=== PATIENT | female | born 1970 | race Two or more races ===

== ENCOUNTER 2019-10-18 12:46 | Emergency (ER) | payer SELFPAY ==
--- NOTE | 2019-10-18 14:17 | ER Document Report ---
ED Medical Screen (RME) - General Stated Complaint: BACK PAIN Time Seen by Provider: 10/18/19 14:10 Mode of Arrival: Ambulatory Information source: Patient Notes: 49-year-old female patient presenting to the emergency department chief complaint of low back pain that radiates down into her left leg and buttocks. Patient reports she was seen in urgent care last week, was placed on a prednisone taper pack, given a steroid injection and also placed on cyclobenzaprine. She reports her symptoms are worsening since being on the medications. She denies any direct trauma to the area. Denies any specific heavy lifting or incident that causes pain. Tenderness to palpation in the lumbar paraspinous areas bilaterally, increased on the left. I have greeted and performed a rapid initial assessment of this patient. A comprehensive ED assessment and evaluation of the patient, analysis of test results and completion of the medical decision making process will be conducted by additional ED providers. I have specifically instructed the patient or family members with the patient to immediately return to any nursing staff should anything change in the patient's condition or with their chief complaint. - Related Data Allergies/Adverse Reactions: No Known Allergies Allergy (Verified 10/18/19 14:06)
--- NOTE | 2019-10-18 15:10 | RADIOLOGY REPORT (SQ) ---
EXAM DESCRIPTION: CT LUMBAR SPINE WITHOUT COMPLETED DATE/TIME: 10/18/2019 2:57 pm REASON FOR STUDY: low back pain COMPARISON: None. TECHNIQUE: Axial images acquired through the lumbar spine without intravenous contrast. Images revi ewed with lung, soft tissue and bone windows. Reconstructed coronal and sagittal MPR images reviewed . All images stored on PACS. All CT scanners at this facility use dose modulation, iterative reconstruction, and/or weight based d osing when appropriate to reduce radiation dose to as low as reasonably achievable (ALARA). [facility]: Dose Right [facility]: CareDose [facility]: Dose Right [facility]: Teradose 4D [facility]: RipCode RADIATION DOSE: mGy. LIMITATIONS: None. FINDINGS: SEGMENTATION: Normal. No transitional anatomy. ALIGNMENT: Grade 1 anterolisthesis of L5 on S1. VERTEBRAL BODIES: No fractures. No dislocation. No acute findings. DISCS: There is disc space narrowing throughout the lumbar spine most marked at L4-L5 and L5-S1. Pro minent spurring posteriorly at 4 5 with slight indentation anterior thecal sac. There is bilateral f oraminal stenosis at this level. PEDICLES, TRANSVERSE PROCESSES: No fractures. No dislocation. No acute findings. FACETS, POSTERIOR ELEMENTS: Bilateral pars defects at L5-S1. HARDWARE: None in the spine. VISUALIZED RIBS: No fractures. SOFT TISSUES: No significant or acute finding in adjacent soft tissues. OTHER: No other significant finding. IMPRESSION: 1. Multilevel disc degenerative disease most marked at L4-L5 and L5-S1. 2. Grade 1 anterolisthesis of L5 on S1 with bilateral pars defects. TECHNICAL DOCUMENTATION: JOB ID: [id number] Quality ID # [id number]: Final reports with documentation of one or more dose reduction techniques (e.g., Au tomated exposure control, adjustment of the mA and/or kV according to patient size, use of iterative reconstruction technique) 2010 [employer]- All Rights Reserved Reading location - IP/workstation name: [email or web address]
--- NOTE | 2019-10-18 16:50 | ER Document Report ---
ED General - General Chief Complaint: Low Back Pain Stated Complaint: BACK PAIN Time Seen by Provider: 10/18/19 14:10 Mode of Arrival: Ambulatory Notes: Patient is a 49-year-old female with no significant past medical history presents to the emergency department the chief complaint of lower back pain is been ongoing for little while now. The patient reports throughout her life she is had back pain problems on and off. She is never been given a formal diagnosis. 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 She pulled a double last week and states after that she could barely walk. She states the pain is so severe primarily affects the left lower back and radiates down the left leg. She denies any weakness in the lower extremities. Denies any urinary or bowel incontinence or retention. Denies any saddle anesthesia. Was given prednisone and Flexeril last week without any improvement. TRAVEL OUTSIDE OF THE [place] IN LAST 30 DAYS: No - Related Data Allergies/Adverse Reactions: No Known Allergies Allergy (Verified 10/18/19 14:06) Past Medical History - General Information source: Patient - Social History Smoking Status: Current Every Day Smoker Chew tobacco use (# tins/day): No Frequency of alcohol use: None Drug Abuse: Marijuana Family History: None Patient has suicidal ideation: No Patient has homicidal ideation: No Pulmonary Medical History: Reports: Hx Bronchitis Review of Systems - Review of Systems Musculoskeletal: Back pain -: Yes All other systems reviewed and negative Physical Exam - Vital signs Vitals: Temp Pulse Resp BP Pulse Ox 98 F 100 16 144/95 H 98 10/18/19 14:07 10/18/19 14:07 10/18/19 14:07 10/18/19 14:07 10/18/19 14:07 - General General appearance: Appears well, Alert In distress: None - Respiratory Respiratory status: No respiratory distress Chest status: Nontender Breath sounds: Normal Chest palpation: Normal - Cardiovascular Rhythm: Regular Heart sounds: Normal auscultation - Abdominal Inspection: Normal Distension: No distension Bowel sounds: Normal Tenderness: Nontender Organomegaly: No organomegaly - Back Back: Normal, Other - Positive straight leg raise on the left at approximately 45 degrees. Lower extremity strength 5 out of 5 bilaterally. Patient able to elevate great toes bilaterally. 2+ DP/PT bilaterally. Gait limited by pain.. No: Vertebra tenderness - Extremities General upper extremity: Normal inspection, Nontender, Normal color, Normal ROM, Normal temperature General lower extremity: Normal inspection, Nontender, Normal color, Normal ROM, Normal temperature, Normal weight bearing. No: Jose's sign - Neurological Neuro grossly intact: Yes Cognition: Normal Orientation: AAOx4 [place] Coma Scale Eye Opening: Spontaneous Ronnell Coma Scale Verbal: Oriented [place] Coma Scale Motor: Obeys Commands [place] Coma Scale Total: 15 Speech: Normal Motor strength normal: LUE, RUE, LLE, RLE Sensory: Normal - Psychological Associated symptoms: Normal affect, Normal mood - Skin Skin Temperature: Warm Skin Moisture: Dry Skin Color: Normal Course - Re-evaluation Re-evalutation: 10/18/19 16:47 Discussed patient findings of grade 1 anterolisthesis of L5. We discussed back rest and supportive care measures. Will refer to neurosurgery. Given a short course of pain medications. Counseled her at length regarding the importance of outpatient follow-up and advised she return here or any ER immediately with any new, persistent or worsening symptoms. She verbalized understood and agreed. - Vital Signs Vital signs: Temp Pulse Resp BP Pulse Ox 98 F 100 16 144/95 H 98 10/18/19 14:07 10/18/19 14:07 10/18/19 14:07 10/18/19 14:07 10/18/19 14:07 Discharge - Discharge Clinical Impression: Anterolisthesis Back pain Qualifiers: Back pain location: low back pain Chronicity: acute Back pain laterality: left Sciatica presence: with sciatica Sciatica laterality: sciatica of left side Qualified Code(s): M54.42 - Lumbago with sciatica, left side Condition: Stable Disposition: HOME, SELF-CARE Instructions: Low Back Pain ([facility]) Additional Instructions: Follow-up with your regular doctor in 2 to 3 days for reevaluation. Return here or any ER immediately with any new, persistent or worsening symptoms. Prescriptions: Hydrocodone/Acetaminophen [Hecker 10-325 mg Tablet] 1 tab PO Q6 PRN #12 tablet PRN Reason: Referrals: SUMIT CORNELIUS MD [COMMUNITY BASED STAFF] - Follow up as needed
[2019-10-18 17:12] VITALS: BP 139/78
== END 2019-10-18 17:07 | disposition home or self-care (01) ==
LOC: ER 12:46
DX: M54.42 Lumbago with sciatica, left side (principal); M43.00 Spondylolysis, site unspecified; F12.10 Cannabis abuse, uncomplicated; F17.200 Nicotine dependence, unspecified, uncomplicated
CPT/HCPCS: 72131; 99283

== ENCOUNTER 2020-08-18 17:03 | Emergency (ER) | payer SELFPAY ==
--- NOTE | 2020-08-18 18:21 | ER Document Report ---
ED Medical Screen (RME) - General Chief Complaint: Nausea Stated Complaint: NAUSEA, EAR PAIN, HEADACHE Time Seen by Provider: 08/18/20 18:14 Notes: HPI: 50-year-old female presenting for sinus pressure, bilateral ear pain worse on the left, slight cough today. Woke up with sweats the last 2 mornings. Believes she had a fever. Had episodes of vertigo yesterday which resolved have not had them today. Did take Tylenol Sinus yesterday. Patient had a positive Covid test at [place], negative Covid test a week and a half ago. No chest pain but does have occasional shortness of breath PHYSICAL EXAMINATION: Lung sounds are clear to auscultation clear rhinitis, bilateral tympanic membranes are pearly barrett with slight serous fluid behind both I have greeted and performed a rapid initial assessment of this patient. A comprehensive ED assessment and evaluation of the patient, analysis of test results and completion of medical decision making process will be conducted by an additional ED providers. Please note that clinical decision making for this patient was made during the 2019 pandemic of novel coronavirus which caused a significant strain on the healthcare system including at this particular facility. Criteria for admission discharge and level of care decisions as well as treatment decisions have necessarily changed TRAVEL OUTSIDE OF THE [place] IN LAST 30 DAYS: No - Related Data Allergies/Adverse Reactions: No Known Allergies Allergy (Verified 10/18/19 14:06) Past Medical History Pulmonary Medical History: Reports: Hx Bronchitis Physical Exam - Vital signs Vitals: Temp Pulse Resp BP Pulse Ox 98.5 F 102 H 16 146/81 H 98 08/18/20 17:42 08/18/20 17:42 08/18/20 17:42 08/18/20 17:42 08/18/20 17:42 Course - Vital Signs Vital signs: Temp Pulse Resp BP Pulse Ox 98.5 F 102 H 16 146/81 H 98 08/18/20 17:42 08/18/20 17:42 08/18/20 17:42 08/18/20 17:42 08/18/20 17:42
--- NOTE | 2020-08-18 20:23 | RADIOLOGY REPORT (SQ) ---
XR CHEST 1 VIEW HISTORY: Fever. COMPARISON: None. FINDINGS: The heart size is within normal limits. There is no pulmonary vascular congestion. No consolidation, pleural effusion, or pneumothorax is seen. No acute bony findings are seen. IMPRESSION: No evidence of acute cardiopulmonary disease.
[2020-08-18] MEDS ORDERED: ACETAMINOPHEN 325 MG TABLET PO ONE (20:34)
--- NOTE | 2020-08-18 20:36 | ER Document Report ---
ED General - General Chief Complaint: Nausea Stated Complaint: NAUSEA, EAR PAIN, HEADACHE Time Seen by Provider: 08/18/20 18:14 Notes: Patient is a 50-year-old female who comes emergency department for chief complaint of slight cough, chills and sweats, pressure behind her eyes, bilateral mild ear pain, general malaise. She states yesterday she had vertigo and vomited once as well. Vertigo and nausea resolved. Symptoms have been present for a total of 2 days. She denies shortness of breath, headache, abdominal pain, chest pain. She denies any obvious sick contacts. She states she had a positive rapid Covid test at [place], negative Covid test 1.5 weeks ago. She states the send out results in PCR for the rapid Covid test were negative. She does work in a public setting. Patient smokes, has remote history of pancreatitis, denies any other medical history, denies recreational drugs or alcohol. TRAVEL OUTSIDE OF THE [place] IN LAST 30 DAYS: No - Related Data Allergies/Adverse Reactions: No Known Allergies Allergy (Verified 10/18/19 14:06) Past Medical History - General Information source: Patient - Social History Smoking Status: Current Every Day Smoker Smoking Education Provided: Yes - <3 min Frequency of alcohol use: None Drug Abuse: None Lives with: Family Family History: None Pulmonary Medical History: Reports: Hx Bronchitis - Immunizations Immunizations up to date: Yes Hx Diphtheria, Pertussis, Tetanus Vaccination: Yes Review of Systems - Review of Systems Constitutional: See HPI EENT: See HPI Cardiovascular: No symptoms reported Respiratory: See HPI Gastrointestinal: See HPI Genitourinary: No symptoms reported Female Genitourinary: No symptoms reported Musculoskeletal: No symptoms reported Skin: No symptoms reported Hematologic/Lymphatic: No symptoms reported Neurological/Psychological: No symptoms reported Physical Exam - Vital signs Vitals: Temp Pulse Resp BP Pulse Ox 98.5 F 102 H 16 146/81 H 98 08/18/20 17:42 08/18/20 17:42 08/18/20 17:42 08/18/20 17:42 08/18/20 17:42 - Notes Notes: GENERAL: Alert, interacts well. No acute distress. Well-appearing HEAD: Normocephalic, atraumatic. EYES: Pupils equal, round, and reactive to light. Extraocular movements intact. ENT: Oral mucosa moist, tongue midline. Oropharynx unremarkable. Airway patent. Nares patent, sinuses non-tender, ear canals unremarkable, TM's intact, small serous effusion noted especially on the right. Otherwise unremarkable. NECK: Full range of motion. Supple. Trachea midline. No lymphadenopathy. LUNGS: Clear to auscultation bilaterally, no wheezes, rales, or rhonchi. No respiratory distress. Non-tender chest wall. Occasional very mild cough. No labored breathing. HEART: Regular rate and rhythm. No murmur ABDOMEN: Soft, non-tender. Non-distended. EXTREMITIES: Moves all 4 extremities spontaneously. No edema, normal radial and dorsalis pedis pulses bilaterally. No cyanosis. BACK: no cervical, thoracic, lumbar midline tenderness. No saddle anesthesia, normal distal neurovascular exam. Moves all extremities in full range of motion. NEUROLOGICAL: Alert and oriented x3. Normal speech. Cranial nerves II through XII grossly intact. Strength 5/5 in all extremities. PSYCH: Normal affect, normal mood. SKIN: Warm, dry, normal turgor. No rashes or lesions noted. Course - Re-evaluation Re-evalutation: Patient borderline tachycardic per vital signs but not notably tachycardic on my evaluation. She has no chest pain or shortness of breath. She has no dizziness or passing out. She has cough, intermittent ear pain with small serous effusion, she did have vertigo with vomiting but this resolved. She states she is concerned she might have COVID-19 and might have pneumonia. Chest x-ray is negative, influenza negative, COVID-19 testing is pending. I discussed this with patient, patient requesting to go home. Based on her well appearance, lack of symptoms on my evaluation, I do not suspect underlying acute intrathoracic etiology or serious infection at this time. I discussed expectations, treatments, follow-up, return cautions. Patient states appreciation and agreement. Stable and well-appearing at time of discharge. - Vital Signs Vital signs: Temp Pulse Resp BP Pulse Ox 99.2 F 107 H 16 122/65 99 08/18/20 22:07 08/18/20 22:07 08/18/20 22:07 08/18/20 22:07 08/18/20 22:07 - Laboratory Results Critical Laboratory Results Reviewed: No Critical Results - Radiology Results Critical Radiology Results Reviewed: No Critical Results Discharge - Discharge Clinical Impression: Chills, Cough, Person under investigation for COVID-19 Ear pain Qualifiers: Laterality: bilateral Qualified Code(s): H92.03 - Otalgia, bilateral Condition: Stable Disposition: HOME, SELF-CARE Instructions: COVID-19 Guidance for Persons Under Investigation Additional Instructions: Your influenza test is negative. You are being tested for COVID-19, please quarantine while you are awaiting the results, you will be contacted with additional instructions. Your chest x-ray does not show any concerning findings. There is a small amount of fluid behind your eardrums in your ears but your exam does not show any concerning findings. I recommend the Flonase nasal spray, [id number] decongestions, fever treatment such as Tylenol and ibuprofen, plenty fluids, and rest. Return if you worsen including difficulty breathing, chest pain, or any other concerning or worsening symptoms. Prescriptions: Fluticasone Propionate [Flonase Nasal [place] 50 Mcg/[place] 16 gm] 1 spray NASL Q12 #1 inhaler Forms: Return to Work
[2020-08-18 21:47] LABS: A TYPE INFLUENZA AG NEGATIVE (NEGATIVE); B INFLUENZA AG NEGATIVE (NEGATIVE)
[2020-08-18 22:12] VITALS: BP 122/65
== END 2020-08-18 22:12 | disposition home or self-care (01) ==
LOC: ER 17:03
DX: H92.03 Otalgia, bilateral (principal); R05 Cough; R11.0 Nausea; R51.9 Headache, unspecified; F17.200 Nicotine dependence, unspecified, uncomplicated; Z20.822 Contact with and (suspected) exposure to COVID-19
CPT/HCPCS: 71045; 87804; 99284